=== PATIENT | female | born 1975 | race Caucasian/White ===

== ENCOUNTER 2020-02-04 20:47 | Emergency (ER) | payer SELFPAY ==
--- NOTE | 2020-02-04 21:00 | NUR ---
Per registration, pt LWBS.
== END 2020-02-04 21:00 | disposition left against medical advice (07) ==
LOC: SED 20:47
DX: R20.0 Anesthesia of skin (principal); Z53.21 Procedure and treatment not carried out due to patient leaving prior to being seen by health care provider